=== PATIENT | female | born 1990 | race African-American/Black ===

== ENCOUNTER 2020-06-14 12:42 | Emergency (ER) | payer MEDICAID ==
[~2020-06-14] VITALS: Ht 175.3 cm; Wt 61.0 kg
[2020-06-14 12:45] VITALS: BP 110/79
== END 2020-06-14 16:01 | disposition home or self-care (01) ==
LOC: ER 12:42
DX: T16.2XXA Foreign body in left ear, initial encounter (principal); Z98.890 Other specified postprocedural states; X58.XXXA Exposure to other specified factors, initial encounter; Y93.89 Activity, other specified; Y92.89 Other specified places as the place of occurrence of the external cause; Y99.8 Other external cause status
CPT/HCPCS: 69200; 99284

== ENCOUNTER 2025-06-29 18:21 | Emergency (ER) | payer MEDICAID ==
[~2025-06-29] VITALS: Ht 172.7 cm; Wt 75.0 kg
[2025-06-29 18:31] VITALS: O2SAT 98
[2025-06-29 18:36] VITALS: BP 143/96; PULSE 79; RESP 18; TEMP 36.8; O2SAT 100
[2025-06-29 20:02] LABS: COLOR URINE YELLOW (YELLOW); GLUCOSE URINE NEGATIVE (NEGATIVE); KETONES URINE TRACE (NEGATIVE); LEUKOCYTE ESTERASE URINE 1+ (NEGATIVE); NITRITE URINE NEGATIVE (NEGATIVE); OCCULT BLOOD URINE NEGATIVE (NEGATIVE); PH URINE 8.0 (4.5-8.0); PROTEIN URINE NEGATIVE (NEGATIVE); SPECIFIC GRAVITY URINE 1.020 (1.005-1.030); UROBILINOGEN URINE 1.0 E.U./dL (0.2-1.0)
[2025-06-29 20:06] LABS: HCG SCREEN NEGATIVE
[2025-06-29] MEDS: CEFTRIAXONE SODIUM 500MG VIAL IM ONE (20:20)
[2025-06-29] MEDS: LIDOCAINE HCL 1% 20ML VIAL INFIL ONE (20:20)
[2025-06-29] MEDS: DOXYCYCLINE HYCLATE 100MG CAPSULE PO ONE (20:21)
[2025-06-29 20:34] LABS: CLARITY URINE SL HAZY (CLEAR)
[2025-06-29 20:35] LABS: BACTERIA URINE TRACE; RBC URINE 0-2 /hpf (0-2); SQUAMOUS EPITHELIAL CELL URINE FEW /lpf (RARE/1+)
[2025-07-03 04:09] LABS: CHLAMYDIA TRACHOMATIS NAA Positive (Negative); NEISSERIA GONORRHOEAE NAA Negative (Negative)
[2025-07-03 04:09] LABS: HSV TYPE 2 SPECIFIC AB IGG Reactive (Non Reactive)
== END 2025-06-29 20:54 | disposition home or self-care (01) ==
LOC: ER 18:27
DX: Z11.3 Encounter for screening for infections with a predominantly sexual mode of transmission (principal); Z98.890 Other specified postprocedural states
CPT/HCPCS: 99283; 86592; 86695; 86696; 87491; 87591; 81003; 81025; 84703; 36415; 96372; J0696; J2003